=== PATIENT | female | born 1980 | race Two or more races ===

== ENCOUNTER 2019-11-04 15:49 | Emergency (ER) | payer SELFPAY ==
[~2019-11-04] VITALS: Ht 154.9 cm; Wt 82.6 kg
[2019-11-04 15:59] VITALS: BP 130/67
[2019-11-04] MEDS ORDERED: Meclizine 25mg tab ORAL PRN (16:30)
[2019-11-04 16:40] LABS: ANION GAP 11 mmol/L (5-15); BLOOD UREA NITROGEN 19 mg/dL (7-18); CALCIUM 9.5 MG/DL (8.5-10.1); CARBON DIOXIDE 26 MMOL/L (21-32); CHLORIDE 98 MMOL/L (98-107); CREATININE 0.8 MG/DL (0.55-1.30); POTASSIUM 4.1 MMOL/L (3.5-5.1); SODIUM 135 MMOL/L (136-145)
[2019-11-04 16:44] LABS: ALANINE AMINOTRANSFERASE 26 U/L (12-78); ALBUMIN 3.7 G/DL (3.4-5.0); ALBUMIN/GLOBULIN RATIO 0.8 (1.0-2.7); ALKALINE PHOSPHATASE 80 U/L (46-116); ASPARTATE AMINO TRANSFERASE 58 U/L (15-37); BILIRUBIN,TOTAL 0.3 MG/DL (0.2-1.0)
[2019-11-04 16:48] LABS: BASOPHILS % (AUTO) 0.7 % (0.0-2.0); EOSINOPHILS % (AUTO) 0.4 % (0.0-3.0); HEMATOCRIT 35.2 % (37.0-47.0); HEMOGLOBIN 11.7 G/DL (12.0-16.0); LYMPHOCYTES % (AUTO) 14.3 % (20.0-45.0); MEAN CORPUSCULAR VOLUME 84 FL (80-99); MONOCYTES % (AUTO) 3.9 % (1.0-10.0); NEUTROPHILS % (AUTO) 80.7 % (45.0-75.0); PLATELET COUNT 428 K/UL (150-450); RED BLOOD COUNT 4.17 M/UL (4.20-5.40); RED CELL DISTRIBUTION WIDTH 15.2 % (11.6-14.8); WHITE BLOOD COUNT 12.9 K/UL (4.8-10.8)
[2019-11-04] MEDS ORDERED: METFORMIN HCL1000 M1 ORAL (17:05)
[2019-11-04] MEDS ORDERED: NOVOLIN N100 UNIT/1 SUBQ (17:10)
[2019-11-04] MEDS ORDERED: NOVOLIN R100 UNIT/1 SUBQ (17:10)
--- NOTE | 2019-11-04 17:58 | Diagnostic Imaging Report ---
EXAM: CT Head Without Intravenous Contrast CLINICAL HISTORY: Dizziness. TECHNIQUE: Axial computed tomography images of the head/brain without intravenous contrast. CTDI is 53.4 mGy and DLP is 992.1 mGy-cm. One or more of the following dose reduction techniques were used: automated exposure control, adjustment of the mA and/or kV according to patient size, use of iterative reconstruction technique. COMPARISON: None. FINDINGS: Brain: No abnormal extra-axial collection. No hemorrhage. Midline shift: No midline shift or mass-effect. Ventricles: The ventricular system is age appropriate. Bones/joints: The calvarium is within normal limits. No acute fracture. Soft tissues: Unremarkable. Sinuses: Visualized sinuses are unremarkable. Mastoid air cells: Mastoid air cells are well pneumatized peered IMPRESSION: 1. No acute intracranial pathology. 2. If there is concern for etiology such as early acute lacunar infarcts, magnetic resonance imaging of the brain with diffusion-weighted sequences should be performed for follow-up.
[2019-11-04 18:32] VITALS: BP 122/69
--- NOTE | 2019-11-04 18:32 | Emergency Room Report ---
History of Present Illness General Chief Complaint: Vomiting Source: Patient Present Illness HPI 39 YO female with pmhx of hypothyroid, HTN and DM presents to the ED c/o dizziness which she describes as the room spinning around her, nausea and non- bloody vomiting x 1 day. Patient also complaining of burning acidic sensation in the upper abdomen. Triage summary report showed multiple symptoms including shortness of breath, fevers, and cough. The patient is denying these symptoms she was asked several times. Pt. denies chills. She denies constipation. She reports one episode of diarrhea. She reports hx of DM. She denies DUNN, visual changes, syncope, CP, palpitations. She denies . She denies weakness. She denies paresthesias. She reports feeling tired. She denies head trauma, ear pain or recent URI. Pt. denies recent travel. She reports symptoms worse with sitting up. She denies neck pain or stiffness. Allergies: Coded Allergies: No Known Allergies (Unverified , 11/04/19) COVID-19 Screening Contact w/high risk pt: No Experienced COVID-19 symptoms?: Yes COVID-19 Testing performed MECHANICAL ENGINEERING TECHNOLOGIST: No Patient History Past Medical History: see triage record, DM Past Surgical History: none Pertinent Family History: none Now: No Reviewed Nursing Documentation: PMH: Agreed; PSxH: Agreed Nursing Documentation-PMH Past Medical History: No History, Except For Hx Hypertension: Yes Hx Diabetes: Yes Review of Systems All Other Systems: negative except mentioned in HPI Physical Exam Vital Signs Date Time Temp Pulse Resp B/P (MAP) Pulse Ox O2 Delivery O2 Flow Rate FiO2 11/04/19 15:59 80 20 11/04/19 15:59 98.9 130/67 98 Room Air Sp02 EP Interpretation: reviewed, normal General Appearance: no apparent distress - sitting comfortably on gurney filling out paperwork, alert, GCS 15, non-toxic Head: normocephalic, atraumatic Eyes: bilateral eye normal inspection, bilateral eye PERRL, bilateral eye EOMI , bilateral eye other - no photophobia ENT: hearing grossly normal, normal voice, uvula midline, moist mucus membranes Neck: full range of motion, no meningismus, no bony tend Respiratory: lungs clear, normal breath sounds, no respiratory distress, no accessory muscle use, no wheezing, speaking full sentences Cardiovascular #1: regular rate, rhythm, normal capillary refill Gastrointestinal: normal bowel sounds, non tender, soft, no peritonitis, non- distended, no guarding Rectal: deferred Genitourinary: normal inspection, no CVA tenderness Musculoskeletal: normal range of motion, gait/station normal, non-tender Neurologic: alert, motor strength/tone normal, oriented x3, sensory intact, responsive, speech normal, normal gait - ambulatory without need for assistance. , no pronator, grossly normal, no focal defects, other - no nystagmus. No facial droop. normal finger to nose. Psychiatric: judgement/insight normal Skin: no rash, normal color Lymphatic: no adenopathy Medical Decision Making PA Attestation Dr. Castelan Is my supervising Physician whom patient management has been discussed with. Diagnostic Impression: Primary Impression: Vomiting Qualified Codes: R11.11 - Vomiting without nausea ER Course 39 YO female presents to the ED c/o dizziness which she describes as the room spinning around her, nausea and non-bloody vomiting x 1 day. Patient also complaining of burning acidic sensation in the upper abdomen. Triage summary report showed multiple symptoms including shortness of breath, fevers, and cough. The patient is denying these symptoms she was asked several times. Pt. denies chills. She denies constipation. She reports one episode of diarrhea. She reports hx of DM. She denies DUNN, visual changes, syncope, CP, palpitations. She denies . She denies weakness. She denies paresthesias. She reports feeling tired. She denies head trauma, ear pain or recent URI. Pt. denies recent travel. She reports symptoms worse with sitting up. She denies neck pain or stiffness. Ddx considered but are not limited to GE, colitis, COVID-19, CVA, Vertigo, acute appendicitis, SBO, Cyclical Vomiting secondary to THC, just to name a few. Vital signs: pt. is afebrile, H&PE are most consistent with GE most likely viral in etiology vs Vertigo, no evidence to suggest acute abdomen on physical exam. PT. NAD, non-toxic in appearance, No nystagmus or focal deficit on exam. ORDERS: -CBC: wbc's 12.3 -CMP: WNL other than glucose of 258 - Lipase: WNL -Urine Hcg: negative -UDS: Negative -Rapid COVID: negative ED INTERVENTIONS: -1000 NS iv hydration, -Pepcid 20mg IV -Meclizine 50mg -- pt. reports no improvement. -Zofran 4mg Pt. able to sit up, and walk to the bathroom and back without need for assistance with a steady gait. Pt. able to tolerate oral medications without vomiting. no episodes of vomiting during ED visit. DISCHARGE: At this time pt. is stable for d/c to home. Will provide printed patient care instructions, and any necessary prescriptions. Care plan and follow up instructions have been discussed with the patient prior to discharge. Labs Test 11/04/19 15:55 11/04/19 17:26 White Blood Count 12.9 K/UL (4.8-10.8) Red Blood Count 4.17 M/UL (4.20-5.40) Hemoglobin 11.7 G/DL (12.0-16.0) Hematocrit 35.2 % (37.0-47.0) Mean Corpuscular Volume 84 FL (80-99) Mean Corpuscular Hemoglobin 28.0 PG (27.0-31.0) Mean Corpuscular Hemoglobin Concent 33.2 G/DL (32.0-36.0) Red Cell Distribution Width 15.2 % (11.6-14.8) Platelet Count 428 K/UL (150-450) Mean Platelet Volume 8.5 FL (6.5-10.1) Neutrophils (%) (Auto) 80.7 % (45.0-75.0) Lymphocytes (%) (Auto) 14.3 % (20.0-45.0) Monocytes (%) (Auto) 3.9 % (1.0-10.0) Eosinophils (%) (Auto) 0.4 % (0.0-3.0) Basophils (%) (Auto) 0.7 % (0.0-2.0) Sodium Level 135 MMOL/L (136-145) Potassium Level 4.1 MMOL/L (3.5-5.1) Chloride Level 98 MMOL/L (98-107) Carbon Dioxide Level 26 MMOL/L (21-32) Anion Gap 11 mmol/L (5-15) Blood Urea Nitrogen 19 mg/dL (7-18) Creatinine 0.8 MG/DL (0.55-1.30) Estimat Glomerular Filtration Rate > 60 mL/min (>60) Glucose Level 238 MG/DL (74-106) Calcium Level 9.5 MG/DL (8.5-10.1) Total Bilirubin 0.3 MG/DL (0.2-1.0) Aspartate Amino Transf (AST/SGOT) 58 U/L (15-37) Alanine Aminotransferase (ALT/SGPT) 26 U/L (12-78) Alkaline Phosphatase 80 U/L (46-116) Total Protein 8.3 G/DL (6.4-8.2) Albumin 3.7 G/DL (3.4-5.0) Globulin 4.6 g/dL Albumin/Globulin Ratio 0.8 (1.0-2.7) Lipase 156 U/L (73-393) Urine HCG, Qualitative Negative (NEGATIVE) Urine Opiates Screen Negative (NEGATIVE) Urine Barbiturates Screen Negative (NEGATIVE) Phencyclidine (PCP) Screen Negative (NEGATIVE) Urine Amphetamines Screen Negative (NEGATIVE) Urine Benzodiazepines Screen Negative (NEGATIVE) Urine Cocaine Screen Negative (NEGATIVE) Urine Marijuana (THC) Screen Negative (NEGATIVE) CT/MRI/US Diagnostic Results CT/MRI/US Diagnostic Results : Imaging Test Ordered: CT Head No Contrast Impression " No acute intracranial pathology. Recommend MRI if concern for early acute lacunar infarcts." Per official radiology report- Please see report for specific details. Last Vital Signs Date Time Temp Pulse Resp B/P (MAP) Pulse Ox O2 Delivery O2 Flow Rate FiO2 11/04/19 16:04 99.0 80 20 130/67 (88) 98 Room Air Disposition: HOME, SELF-CARE Scripts Famotidine* (Pepcid 20mg tablet*) 20 Mg Tablet 20 MG ORAL DAILY, #7 TAB 0 Refills Prov: Susan Hernandez 11/04/19 Ondansetron Odt* (ZOFRAN ODT*) 4 Mg Tab.rapdis 4 MG BC EVERY 6 HOURS PRN for Nausea & Vomiting, #10 TAB 0 Refills Prov: Susan Hernandez 11/04/19 Referrals: NOT CHOSEN IPA/MD,REFERRING (PCP) Patient Instructions: Nausea and Vomiting, Adult Additional Instructions: Take medications as directed. Follow up with a Primary Care Provider in 3-5 days, even if your symptoms have resolved. --Please review list of primary care clinics, if you do not already have a primary care provider Return sooner to ED if new symptoms occur, or current symptoms become worse. - Please note that this Emergency Department Report was dictated using orderboltautomobile upholstery trim installer technology software, occasionally this can lead to erroneous entry secondary to interpretation by the dictation equipment. Susan Hernandez Nov 04, 2019 18:32
[2019-11-04] MEDS ORDERED: ONDANSETRON ODT4 MG BC (18:33)
[2019-11-04] MEDS ORDERED: FAMOTIDINE20 MG ORAL (18:33)
== END 2019-11-04 18:54 | disposition home or self-care (01) ==
LOC: EMR 16:00
DX: R11.11 Vomiting without nausea (principal); I10 Essential (primary) hypertension; E11.8 Type 2 diabetes mellitus with unspecified complications
CPT/HCPCS: 36415; 70450; 80053; 80307; 81025; 83690; 85025; 96361; 96374; 96375; 99284; J2405; J7030; S0028; U0002